=== PATIENT | male | born 1975 | race Caucasian/White ===

== ENCOUNTER 2024-06-06 01:28 | Emergency (ER) | payer SELFPAY | END 2024-06-06 02:01 | disposition home or self-care (01) | LOC: CSHERS 01:28 | DX: R33.9 Retention of urine, unspecified (principal); F17.290 Nicotine dependence, other tobacco product, uncomplicated ==

== ENCOUNTER 2024-06-06 16:02 | Emergency (ER) | payer SELFPAY ==
[2024-06-06] MEDS ORDERED: Magnesium Citrate 300 ML BOT PO SCH (16:45)
[2024-06-06 17:16] LABS: Bilirubin Neg (Negative); Blood, Urine Negative (Negative); Clarity Clear (Clear); Glucose, Urine (Dipstick) Normal (Negative); Ketone, Urine Negative (Negative); Leukocyte Negative (Negative); Nitrite Negative (Negative); Protein, Urine (Dipstick) 15 mg/dl (Neg-Trace); Specific Gravity, Urine 1.025 (1.005-1.030); Urobilinogen Normal mg/dL (Less than 2)
[2024-06-06 17:50] LABS: RBC/HPF 0-3 HPF (0-3)
[2024-06-06 17:51] LABS: Bacteria/HPF 1+ HPF (None Seen); CAUTI Indications for Culture Pelvic or flank pain; Mucous/LPF 2+ LPF (<2+); Squamous Epithelial 0-3 HPF (0-3); WBC/HPF 0-3 HPF (0-3)
[2024-06-06 17:52] LABS: Urine Culture Reflex No No
== END 2024-06-06 18:15 | disposition home or self-care (01) ==
LOC: CSHERS 16:02
DX: R33.9 Retention of urine, unspecified (principal); F17.290 Nicotine dependence, other tobacco product, uncomplicated
CPT/HCPCS: 51702; 81001; 99283